=== PATIENT | male | born 1940 | race Caucasian/White ===

== ENCOUNTER 2021-08-18 12:39 | Inpatient (IN) | payer MEDICARE, OTHER ==
[~2021-08-18] VITALS: Ht 185.4 cm; Wt 78.5 kg
[~2021-08-18 12:39] MED LIST: ALL DAY ALLERGY10 M2 PO; ASPIRIN 325MG325 MG PO; HYDROCODON-ACE1 EAC2 PO; MULTIVITAMINS1 EAC1 PO; NORVASC10 MG PO; PRINIVIL20 MG PO; ZOCOR10 MG PO
[2021-08-18 15:51] LABS: HEMOGLOBIN 13.6 gm/dl (14.0-17.5); RED BLOOD COUNT 5.02 M/UL (4.20-5.50); WHITE BLOOD COUNT 7.8 K/UL (4.5-11.0)
[2021-08-18 16:52] LABS: BUN/CREATININE RATIO 17 (0-10)
[2021-08-19 06:29] LABS: HEMOGLOBIN 12.3 gm/dl (14.0-17.5); RED BLOOD COUNT 4.65 M/UL (4.20-5.50)
[2021-08-19 07:05] LABS: BUN/CREATININE RATIO 19 (0-10)
[2021-08-19] MEDS ORDERED: BENTYL 10MG CAP10 MG PO (17:39)
[2021-08-19] MEDS ORDERED: HYDROCHLOROTHIA25 MG PO (18:21)
[2021-08-19] MEDS ORDERED: ARTIFICIAL TEAR15 M6 EYEBOTH (18:23)
[2021-08-20 06:59] LABS: HEMOGLOBIN 11.3 gm/dl (14.0-17.5); RED BLOOD COUNT 4.35 M/UL (4.20-5.50)
[2021-08-20 07:04] LABS: WHITE BLOOD COUNT 6.3 K/UL (4.5-11.0)
[2021-08-20] MEDS ORDERED: PROSCAR5 MG PO (14:32)
[2021-08-20] MEDS ORDERED: CHOLESTYRAMINE P4 GM PO ×2 (14:42→14:45)
[2021-08-20] MEDS ORDERED: ZOCOR20 MG PO (17:27)
[2021-08-20] MEDS ORDERED: FLOMAX 0.4 MG0.4 MG PO (17:29)
[2021-08-21 07:59] LABS: BUN/CREATININE RATIO 25 (0-10)
[2021-08-22 07:12] LABS: BUN/CREATININE RATIO 31 (0-10)
[2021-08-23 12:46] LABS: HEMOGLOBIN 11.1 gm/dl (14.0-17.5); RED BLOOD COUNT 4.2 M/UL (4.20-5.50); WHITE BLOOD COUNT 5.6 K/UL (4.5-11.0)
[2021-08-23 13:13] LABS: BUN/CREATININE RATIO 30 (0-10)
[2021-08-24 05:36] LABS: BUN/CREATININE RATIO 29 (0-10)
[2021-08-24] MEDS ORDERED: ENOXAPARIN40 MG/0.4 SC (12:16)
[2021-08-24] MEDS ORDERED: LOPRESSOR 25 MG25 MG PO (12:16)
== END 2021-08-26 17:25 | disposition home health service (06) | DRG 987 ==
LOC: ER1 12:39 → CDU 20:08 → M/S 20:08
PROVIDERS: Internal Medicine; Internal Medicine Hematology & Oncology; Internal Medicine Pulmonary Disease; Physician Assistant; Registered Nurse; ADMIT Internal Medicine
PROC: 0BBG8ZX Excision of Left Upper Lung Lobe, Via Natural or Artificial Opening Endoscopic, Diagnostic (ICD-10-PCS; 2021-08-26)
PROC: 0B9C8ZX Drainage of Right Upper Lung Lobe, Via Natural or Artificial Opening Endoscopic, Diagnostic (ICD-10-PCS; 2021-08-26)
PROC: 0BD38ZX Extraction of Right Main Bronchus, Via Natural or Artificial Opening Endoscopic, Diagnostic (ICD-10-PCS; 2021-08-26)
PROC: 0B9F8ZX Drainage of Right Lower Lung Lobe, Via Natural or Artificial Opening Endoscopic, Diagnostic (ICD-10-PCS; principal; 2021-08-26 07:45)
DX: E83.52 Hypercalcemia (principal); G93.41 Metabolic encephalopathy; C85.91 Non-Hodgkin lymphoma, unspecified, lymph nodes of head, face, and neck; N17.9 Acute kidney failure, unspecified; I47.1 Supraventricular tachycardia; I82.612 Acute embolism and thrombosis of superficial veins of left upper extremity; F17.200 Nicotine dependence, unspecified, uncomplicated; Z20.822 Contact with and (suspected) exposure to COVID-19; I25.10 Atherosclerotic heart disease of native coronary artery without angina pectoris; E87.6 Hypokalemia; I10 Essential (primary) hypertension; C07 Malignant neoplasm of parotid gland; N40.0 Benign prostatic hyperplasia without lower urinary tract symptoms; D53.9 Nutritional anemia, unspecified; E87.5 Hyperkalemia; J44.9 Chronic obstructive pulmonary disease, unspecified; E78.5 Hyperlipidemia, unspecified; F03.90 Unspecified dementia, unspecified severity, without behavioral disturbance, psychotic disturbance, mood disturbance, and anxiety; Z95.1 Presence of aortocoronary bypass graft; Z90.49 Acquired absence of other specified parts of digestive tract; Z82.49 Family history of ischemic heart disease and other diseases of the circulatory system; Z88.0 Allergy status to penicillin; Z79.899 Other long term (current) drug therapy
CPT/HCPCS: 36415; 70450; 70490; 71045; 71250; 80048; 80053; 81001; 82397; 82550; 82553; 83735; 83874; 83970; 84132; 84439; 84443; 84484; 85025; 93005; 93971; 97110-GP-CQ; 97116-GP-CQ; 97161; 97166; 97530; 97530-GP-CQ; 99285; J1650; J2704; J3010; J3489; J7030; J7040; U0002

== ENCOUNTER → 2021-09-17 | Outpatient (CLI) | payer MEDICARE, OTHER ==
[~2021-09-17] MED LIST changes: +ARTIFICIAL TEAR15 M6 EYEBOTH; +BENTYL 10MG CAP10 MG PO; +CHOLESTYRAMINE P4 GM PO; +ENOXAPARIN40 MG/0.4 SC; +FLOMAX 0.4 MG0.4 MG PO; +HYDROCHLOROTHIA25 MG PO; +LOPRESSOR 25 MG25 MG PO; +PROSCAR5 MG PO; +ZOCOR20 MG PO
[2021-09-17 08:50] LABS: HEMOGLOBIN 12.5 gm/dl (14.0-17.5); RED BLOOD COUNT 4.75 M/UL (4.20-5.50); WHITE BLOOD COUNT 6.6 K/UL (4.5-11.0)
== END | disposition home or self-care (01) ==
LOC: CT 06:05
PROVIDERS: Internal Medicine Hematology & Oncology
PROC: 0BBH3ZX Excision of Lung Lingula, Percutaneous Approach, Diagnostic (ICD-10-PCS; principal; 2021-09-17)
DX: C7A.090 Malignant carcinoid tumor of the bronchus and lung (principal); C07 Malignant neoplasm of parotid gland; E83.52 Hypercalcemia; Z79.899 Other long term (current) drug therapy
CPT/HCPCS: 71275; 85027; 85610; Q9967

== ENCOUNTER 2021-09-23 17:11 | Inpatient (IN) | payer OTHER, MEDICARE ==
[~2021-09-23] VITALS: Ht 185.4 cm; Wt 70.8 kg
[2021-09-23 20:12] LABS: BUN/CREATININE RATIO 24 (0-10)
[2021-09-23 20:20] LABS: HEMOGLOBIN 11.5 gm/dl (14.0-17.5); RED BLOOD COUNT 4.45 M/UL (4.20-5.50); WHITE BLOOD COUNT 7.1 K/UL (4.5-11.0)
[2021-09-24 07:40] LABS: HEMOGLOBIN 11.1 gm/dl (14.0-17.5); RED BLOOD COUNT 4.33 M/UL (4.20-5.50); WHITE BLOOD COUNT 6.9 K/UL (4.5-11.0)
[2021-09-24 07:47] LABS: BUN/CREATININE RATIO 24 (0-10)
[2021-09-25 06:55] LABS: HEMOGLOBIN 11.2 gm/dl (14.0-17.5); RED BLOOD COUNT 4.4 M/UL (4.20-5.50); WHITE BLOOD COUNT 7.4 K/UL (4.5-11.0)
[2021-09-25 07:01] LABS: BUN/CREATININE RATIO 27 (0-10)
--- NOTE | 2021-09-26 02:40 | NUR ---
PT HAD BEEN VERY ANXIOUS AND TRYING TO CLIMB OOB. 0200 VS WERE SKIPPED FOR PT TO ALLOW PT TO REST R/T MEDICATION ADMISTERED. SEE EMAR AND PROVIDER NOTE FOR MORE INFORMATION. WCTM
[2021-09-26 07:38] LABS: HEMOGLOBIN 10.1 gm/dl (14.0-17.5); WHITE BLOOD COUNT 6.3 K/UL (4.5-11.0)
[2021-09-26 07:44] LABS: RED BLOOD COUNT 3.86 M/UL (4.20-5.50)
[2021-09-26 08:08] LABS: BUN/CREATININE RATIO 28 (0-10)
[2021-09-27 06:43] LABS: HEMOGLOBIN 11.4 gm/dl (14.0-17.5); RED BLOOD COUNT 4.42 M/UL (4.20-5.50)
[2021-09-27 07:15] LABS: BUN/CREATININE RATIO 28 (0-10)
[2021-09-27] MEDS ORDERED: CLOPIDOGREL75 MG PO (10:38)
[2021-09-27] MEDS ORDERED: ATORVASTATIN CA20 MG PO (10:38)
[2021-09-27] MEDS ORDERED: COZAAR 25MG TAB25 MG PO (10:38)
[2021-09-27] MEDS ORDERED: TOPROL XL50 MG PO (10:38)
[2021-09-27] MEDS ORDERED: ASPIRIN EC81 MG PO (10:38)
== END 2021-09-27 17:25 | disposition home health service (06) | DRG 64 ==
LOC: ER1 17:11 → 3 EAST 21:14 → CDU 21:14 → M/S 21:14 → 3 EAST 09-24 02:44 → M/S 09-24 23:57
PROVIDERS: Internal Medicine; Nurse Practitioner; Registered Nurse; ADMIT Internal Medicine
PROC: B24BZZZ Ultrasonography of Heart with Aorta (ICD-10-PCS; principal; 2021-09-25)
DX: I63.89 Other cerebral infarction (principal); G93.41 Metabolic encephalopathy; C34.12 Malignant neoplasm of upper lobe, left bronchus or lung; I42.9 Cardiomyopathy, unspecified; I50.22 Chronic systolic (congestive) heart failure; E83.52 Hypercalcemia; Z20.822 Contact with and (suspected) exposure to COVID-19; R91.1 Solitary pulmonary nodule; I25.10 Atherosclerotic heart disease of native coronary artery without angina pectoris; E78.5 Hyperlipidemia, unspecified; C07 Malignant neoplasm of parotid gland; N40.0 Benign prostatic hyperplasia without lower urinary tract symptoms; I11.0 Hypertensive heart disease with heart failure; M62.81 Muscle weakness (generalized); F17.200 Nicotine dependence, unspecified, uncomplicated; D63.0 Anemia in neoplastic disease; Z95.1 Presence of aortocoronary bypass graft; Z90.49 Acquired absence of other specified parts of digestive tract; Z88.0 Allergy status to penicillin; Z82.49 Family history of ischemic heart disease and other diseases of the circulatory system; Z80.1 Family history of malignant neoplasm of trachea, bronchus and lung; Z79.899 Other long term (current) drug therapy; Z79.82 Long term (current) use of aspirin
CPT/HCPCS: 36415; 70450; 70496; 70498; 70553; 71045; 80048; 80053; 80061; 81001; 82140; 82397; 83880; 83970; 84439; 84443; 85025; 87086; 96372; 96374; 96375; 97116; 97162; 97530; 99285; A9577; J1650; J1940; J3489; J7030; J7070; Q9967; U0002